=== PATIENT | female | born 1965 | race Two or more races ===

== ENCOUNTER 2018-01-29 10:28 | Outpatient (CLI) | payer OTHER | END 2018-01-29 12:48 | disposition home or self-care (01) | LOC: SONOGRAMA 10:28 | DX: E04.1 Nontoxic single thyroid nodule (principal) ==

== ENCOUNTER 2021-02-28 11:35 | Outpatient (CLI) | payer OTHER | END 2021-02-28 12:10 | disposition home or self-care (01) | LOC: SONOGRAMA 11:35 | PROVIDERS: ATTEND Pathology Anatomic Pathology & Clinical Pathology | DX: E04.2 Nontoxic multinodular goiter (principal) ==